=== PATIENT | female | born 1995 | race Caucasian/White ===

== ENCOUNTER 2024-06-09 12:27 | Observation (INO) | payer OTHER, SELFPAY ==
--- NOTE | 2024-06-09 12:49 | US_ITS ---
[address] [address] Patient Name: ALTAGRACIA GERMAN MRN: [id number] date: 1995 Sex: F Assigned Patient Location: [facility] Current Patient Location: [facility] Accession/Order Number: [id number] Exam Date: 06/09/2024 13:25 Report Date: 06/09/2024 14:06 At the request of: DIANA RIZZO Procedure: US OB placenta EXAMINATION: US OB placenta HISTORY: fell on stomach COMPARISON: No relevant comparison available. FINDINGS: PLACENTA: Anterior, grade 0, without abruption or subchorionic hematoma. HEART RATE: 132 bpm OTHER: None. US/US OB placenta IMPRESSION: 1. Single live intrauterine . 2. Anterior placenta without abruption or subchorionic hematoma. Electronically authenticated by: JERRY ALVA Date: 06/09/2024 14:06
--- NOTE | 2024-06-09 12:49 | US_ITS ---
[address] [address] Patient Name: ALTAGRACIA GERMAN MRN: [facility]:[id number] date: 1995 Sex: F Assigned Patient Location: [facility] Current Patient Location: [facility] Accession/Order Number: [id number] Exam Date: 06/09/2024 13:25 Report Date: 06/09/2024 14:02 At the request of: DIANA RIZZO Procedure: US OB BPP w non-stress EXAMINATION: US OB BPP w non-stress HISTORY:fell on stomach COMPARISON: No relevant comparison available. TECHNIQUE: Ultrasound biophysical profile was performed in the radiology department. BREATHING MOVEMENTS: 2 GROSS BODY MOVEMENTS: 2 TONE: 2 QUALITATIVE AMNIOTIC FLUID VOLUME: 2 PRESENTATION: CEPHALIC HEART RATE: 139.18 bpm AMNIOTIC FLUID VOLUME: 15.79 cm GESTATIONAL AGE: 29 weeks 5 days US/US OB BPP w non-stress IMPRESSION: 1. Total biophysical profile score: 8 Electronically authenticated by: JERRY ALVA Date: 06/09/2024 14:02
--- NOTE | 2024-06-09 12:53 | PC.NURSE ---
patient states the reason for today's visit to the hospital to be seen is because, my arm started hurting on Saturday night when i was at work and sweeping. this is my right arm. my left arm has numbness but does not hurt. i was unable to hold up my phone flashlight when i got off of work on Saturday night. any kind of weight on my arm or to hold it up just hurts. i am unsure if it is from past drug use or what, but this area is never an area I've never used before. warmth made it feel better but cold made it worse. i am not sure if this is bad circulation or not. today i also fell in the shower and hit my stomach on the bottom side of my stomach on the tub. my legs also seem swollen to me. i am also on antibiotics right now for a tooth infection and i follow up on Saturday06/12/24 to get all of my teeth pulled out. i have had 4-5 teeth break since January. i have always had bad teeth. (patient's family is in room accompanying patient at this time and family member states, you have bad teeth because you grew up in [place] and there is no fluoride in the water. )i was just in [facility] last week for this toothache also. I am on Amoxicillin 500mg one tab 3x/day per day for 7 days. (patient has pills with her at this time and before RN can educate patient she ingests antibiotic quickly into mouth.) my swelling in my legs was noticed 4-5 days ago. I am currently on Subutex and have not had any drugs since January approximately 2 weeks after I found out i was . 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 )
--- NOTE | 2024-06-09 13:08 | PC.NURSE ---
swelling noted to right arm with slight pitting edema noted to wrist. ROM painful to right arm. patient unable to bend fingers. on numeric pain scale patient describes pain as 5/10 and she states I can bear the pain but I was crying this morning. edema noted to bilateral legs with +1 pitting edema. no pain reported to legs. abdomen has no pain present per patient report and no bruising or edema noted to abdomen. patient states, I wanted to be sure baby is ok but I really am here to get my arm checked out. obvious track kurtz noted on patients body in both upper and lower extremities.
--- NOTE | 2024-06-09 14:53 | PC.NURSE ---
RN offer's PRN Tylenol medication for arm/wrist discomfort and pain. Patient states, I've been taking that all day long and it doesn't help. RN states, I wanted to offer to you what the doctor had ordered for pain and discomfort. It is ok to decline the pain medication. The maximum limit of Tylenol for the day is approx 4,000mg per day so I educate you to watch your daily limit and how often you are taking Tylenol and to not take it more than the recommended time and dosage. Patient states, I haven't taken 4,000mg for the day, it just isn't helping.
[2024-06-09 14:58] LABS: Bilirubin Urine NEGATIVE (NEGATIVE); Blood Urine NEGATIVE (NEGATIVE); Clarity Urine CLEAR (CLEAR); Color Urine YELLOW (YELLOW); Glucose Urine UA NEGATIVE (NEGATIVE); Ketones Urine NEGATIVE (NEGATIVE); Leukocyte Esterase Urine NEGATIVE (NEGATIVE); Nitrite Urine NEGATIVE (NEGATIVE); Protein Urine NEGATIVE (NEG/TRACE)
[2024-06-09 15:14] LABS: Amphetamine Screen Urine NEGATIVE (NEGATIVE); Barbiturates Screen Urine NEGATIVE (NEGATIVE); Benzodiazepines Screen Urine NEGATIVE (NEGATIVE); Buprenorphine Screen Urine POSITIVE (NEGATIVE); Cannabinoid Screen Urine NEGATIVE (NEGATIVE); Cocaine Screen Urine NEGATIVE (NEGATIVE); Methadone Screen Urine NEGATIVE (NEGATIVE); Methamphetamines Screen Urine POSITIVE (NEGATIVE); Opiate Screen Urine NEGATIVE (NEGATIVE); Oxycodone Screen Urine NEGATIVE (NEGATIVE); Phencyclidine Screen Urine NEGATIVE (NEGATIVE); Tricyclic Antidepressant Urine NEGATIVE (NEGATIVE)
--- NOTE | 2024-06-09 15:30 | PC.NURSE ---
Dr. House called and updated on ultrasound results, NST, BPP, patient physical presentation, urine drug screen, urinalysis, and that RN offer's PRN Tylenol pain medication for pain and discomfort to right wrist/arm area and that patient declines and stated, I've been taking that all day and doesn't help. RN also reports that as soon as RN walked out of room that patient requested Tylenol but when RN asked patient when Tylenol was last taken patient stated, It was daylight outside. Dr. House provides discharge order and to advise patient to follow up with Dr. Sandoval OBABRIL or ER to be seen for wrist/arm. Verbal orders repeated back and verified.
--- NOTE | 2024-06-09 15:42 | PC.NURSE ---
RN educates patient of the positive drug screen for the non-prescribed medication. Patient states, I have not been around anyone who's been doing it. I have only taken cold medications but I know that wouldn't make me come positive on a drug screen. Can I give another sample? I know just last week I had a false positive for Meth but it wasn't true and was a false positive. I want to ask my mom why I would be positive for Meth? As patient picks up phone and calls her mother. RN provides patient with discharge instructions and to return to the hospital for any leaking of fluids, vaginal bleeding, absence of movement, or any further injuries such as falls for example. Patient encouraged to go to ER or to be seen by Dr. Sandoval for her arm. Patient verbalizes understanding and asks if the ER can re-screen her for a new urine sample for another drug screen to see if next screen will come up positive as well. RN encourages patient to ask ER for this request when she presents there to be seen for painful and swollen arm. Patient verbalizes understanding and agrees to do so.
[2024-06-09 15:47] LABS: BOX Test Reference Lab FIRELANDS; BOX Test Sent Out KLEIHAUER BETKE
[2024-06-16 03:08] LABS: Amphetamines Negative (Cutoff=500); Buprenorphine Positive (.); Buprenorphine Conf, MS, UR 529 ng/mL (Cutoff=10); Norbuprenorphine Positive (.); Norbuprenorphine Conf, MS,UR >2000 ng/mL (Cutoff=10)
== END 2024-06-09 15:49 | disposition home or self-care (01) ==
PROVIDERS: Admitting Provider Obstetrics & Gynecology; Visit Provider Obstetrics & Gynecology
DX: O26.893 Other specified pregnancy related conditions, third trimester (principal); Z3A.29 29 weeks gestation of pregnancy
CPT/HCPCS: 36415; 76815; 76818; 80299; 80307; 80326; 81003; 85460; G0378; G0379

== ENCOUNTER 2024-09-10 00:21 | Emergency (ER) | payer OTHER, SELFPAY ==
[2024-09-10 00:25] VITALS: BP 121/66; PULSE 79; TEMP 37.1; O2SAT 97; BMI 26.6
--- NOTE | 2024-09-10 00:56 | ED.SKABFB1 ---
HPI - Skin/Abscess/Foreign Bdy General Chief complaint: Fever Stated complaint: FEVER, HALLUCINATING Time Seen by Provider: 09/10/24 00:30 Source: patient Mode of arrival: walk-in History of Present Illness HPI narrative: This 29-year-old female who has 1 month presents for evaluation of fever and right breast redness and tenderness. The patient is breast-feeding. She states that her boobs got clogged she called the family birthing center at this hospital and was told to use hot water and to continue pumping. She has done this and the milk is now flowing but in the meantime she has developed intermittent fevers. She has not taken her temperatures but states that she has had hot and cold chills and felt out of it like she was hallucinating. She does have a history of substance abuse. She does not appear to be under the influence of any mood altering substances in this emergency department tonight. She denies any sore throat or cough. She has no abdominal pain. She is still having some mild lochia but denies any difficulty urinating. She does not have any flank pain. She has no lower extremity pain or swelling. Related Data Home Medications ?Medication ?Instructions ?Recorded ?Confirmed amoxicillin 875 mg-potassium 1 tab PO BID 09/10/24 09/10/24 clavulanate 125 mg tablet Allergies Allergy/AdvReac Type Severity Reaction Status Date / Time No Known Drug Allergies Allergy Verified 06/09/24 13:08 Review of Systems ROS Status of ROS 10 or more systems reviewed and unremarkable except as noted in history and below PFSH PFSH Social History Little interest or pleasure in doing things: not at all Feeling down, depressed, or hopeless: not at all Exam Narrative Exam Narrative: Vital signs and Nursing Notes reviewed: Patient is afebrile with a normal pulse, normal blood pressure, she is not hypoxic with pulse ox of 97% on room air General: Awake, alert, oriented, no acute distress, lying comfortably on the stretcher HEENT: Normocephalic atraumatic, mucous membranes are moist and pink, eyes are clear, normal conjunctiva, vision is grossly intact, patient is edentulous, no posterior pharyngeal erythema or exudate noted Neck: Supple, no meningeal signs, no anterior or posterior cervical lymphadenopathy Chest: Lungs are clear to auscultation with good air entry, there is no wheezing rhonchi or rales appreciated no accessory muscle use, patient is speaking in complete sentences-no chest wall tenderness to palpation Breast exam- chaperoned by Char CROOKS-right breast is erythematous and mildly tender. Do not appreciate any abscess or drainage. Left breast appears normal and is not tender or erythematous. CVS: Regular rate and rhythm S1-S2, no murmurs rubs or gallops, pulses are brisk and equal bilaterally ABD: Soft, nondistended, nontender, no rebound guarding or rigidity, bowel sounds are normal, globular uterus in the lower abdominal area without any tenderness Extremities: Moving all extremities, no lower extremity tenderness or swelling noted, negative Homans' sign, pulses are brisk and equal bilaterally Skin: Normal in appearance without rash,pallor, petechiae or purpura Neuro: No focal deficits Constitutional Vital Signs, click to edit/add: Last Vital Signs Temp 98.7 F 09/10/24 00:25 Pulse 79 09/10/24 00:25 Resp 16 09/10/24 00:25 BP 121/66 09/10/24 00:25 Pulse Ox 97 09/10/24 00:25 O2 Del Method Room Air 09/10/24 00:25 Course Vital Signs Vital signs: Vital Signs Temperature 98.7 F 09/10/24 00:25 Pulse Rate 79 09/10/24 00:25 Respiratory Rate 16 09/10/24 00:25 Blood Pressure 121/66 09/10/24 00:25 Pulse Oximetry 97 09/10/24 00:25 Oxygen Delivery Method Room Air 09/10/24 00:25 Temperature 98.7 F 09/10/24 00:25 Pulse Rate 79 09/10/24 00:25 Respiratory Rate 16 09/10/24 00:25 Blood Pressure 121/66 09/10/24 00:25 Pulse Oximetry 97 09/10/24 00:25 Oxygen Delivery Method Room Air 09/10/24 00:25 MDM - Skin/Abscess/Foreign Bdy MDM Narrative Medical decision making narrative: This 29-year-old female who is 1 month presents for evaluation of fever and breast redness and swelling particularly the right breast. She states that her boobs were clogged and she called the family birthing unit upstairs and was told to use warm compresses and continue breast-feeding. She has continued to breast-feed. Her baby is doing well. 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 I do not appreciate any sign of depression. She is here with the baby's father. She does have a history of substance abuse but appears to be doing well at this time. She does have redness and tenderness to the right breast consistent with mastitis. Her vital signs were stable here. She did not have a fever. She has been intermittently taking Tylenol and Motrin. She was medicated with a dose of Augmentin in the emergency department and will be discharged home with prescription for Augmentin with recommendation to continue pumping and/or breast-feeding and use Tylenol Motrin and warm compresses for the mastitis. She is in agreement with this plan. Discharge Plan Discharge Chief Complaint: Fever Clinical Impression: Mastitis Patient Disposition: Home, Self-Care Time of Disposition Decision: 00:47 Condition: Good Prescriptions / Home Meds: No Action amoxicillin-pot clavulanate 875-125 mg tablet 1 tab PO BID Print Language: Greek Instructions: Mastitis (ED) Referrals: Physician,Non-Staff, MD [Primary Care Provider] - 1 week
[2024-09-10] MEDS: AMOXICILLIN/POT CLAV 875-125 MG TABLET 1 TAB PO (00:58)
== END 2024-09-10 01:07 | disposition home or self-care (01) ==
PROVIDERS: Emergency Provider Emergency Medicine
DX: N61.0 Mastitis without abscess (principal); F19.11 Other psychoactive substance abuse, in remission
CPT/HCPCS: 99283